=== PATIENT | male | born 1940 | race Caucasian/White ===

== ENCOUNTER 2016-11-03 06:02 | Day surgery (SDC) | payer BC ==
[~2016-11-03] VITALS: Ht 172.7 cm; Wt 80.7 kg
--- NOTE | ~2016-11-03 | EGD ---
EGD REPORT [facility] [address] [place] [id number] NAME: ENRIQUE CRISTOBAL : 42 STATUS : REG [facility]#: [id number] AGE: 76 ADM/REG DATE : 11/03/16 MR#: [id number] REPORT SERV DATE: 11/05/16 DICTATED BY: DATE: REPORT STATUS : Draft TRANSCRIBED BY: [facility] DATE: 11/05/16 [facility] Patient Name: Enrique Cristobal Date of : 1940 Attending MD: PRETTY NOONAN MD Procedure Date No Time: 11/03/2016 Procedure: Upper GI endoscopy Indications: Dysphagia Referring MD: RONNI HICKS Medicines: Monitored Anesthesia Care Complications: No immediate complications. Procedure: Pre-Anesthesia Assessment: - ASA Grade Assessment: II - A patient with mild systemic disease. After obtaining informed consent, the endoscope was passed under direct vision. Throughout the procedure, the patient's blood pressure, pulse, and oxygen saturations were monitored continuously. The GIF [id number] was introduced through the mouth, and advanced to the third part of duodenum. The upper GI endoscopy was accomplished without difficulty. The patient tolerated the procedure well. Findings: A 6 cm hiatus hernia was present. A benign-appearing, intrinsic mild stenosis measuring less than one cm (in length) was found 37 cm from the incisors and was traversed. A guidewire was placed and the scope was withdrawn. Dilation was performed with a Savary dilator with no resistance at 54 Fr and no resistance at 57 Fr. The examined esophagus was mildly tortuous. No other significant abnormalities were identified in a careful examination of the esophagus. There is no endoscopic evidence of Landin's esophagus, areas of erosion, ulcerations or varices in the entire esophagus. The entire examined stomach was normal. There is no endoscopic evidence of inflammation, mucosal abnormalities, ulceration or varices in the entire examined stomach. The examined duodenum was normal. There is no endoscopic evidence of inflammation, mucosal abnormalities or ulceration in the entire examined duodenum. The cardia and gastric fundus were normal on retroflexion. Impression: - Hiatus hernia. - Benign-appearing esophageal stricture. Dilated. EGD REPORT [address] [address] NAME: ENRIQUE CRISTOBAL : 42 STATUS : REG [facility] [place] PAT#: [id number] AGE: 76 ADM/REG DATE : 11/03/16 MR#: [id number] REPORT SERV DATE: 11/05/16 DICTATED BY: DATE: REPORT STATUS : Draft TRANSCRIBED BY: [employer] DATE: 11/05/16 - Tortuous esophagus. - Normal stomach. - Normal examined duodenum. Recommendation: - Patient has a contact number available for emergencies. The signs and symptoms of potential delayed complications were discussed with the patient. Return to normal activities tomorrow. Written discharge instructions were provided to the patient. - Return to previous diet. - Discharge patient to home. - Continue present medications. Procedure Code(s): --- Professional --- 39990, Esophagogastroduodenoscopy, flexible, transoral; with insertion of guide wire followed by passage of dilator(s) through esophagus over guide wire Diagnosis Code(s): --- Professional --- K44.9, Diaphragmatic hernia without obstruction or gangrene K22.2, Esophageal obstruction Q39.9, Congenital malformation of esophagus, unspecified R13.10, Dysphagia, unspecified CPT copyright 2013 [employer]. All rights reserved. The codes documented in this report are preliminary and upon floors buffer review may be revised to meet current compliance requirements. PRETTY NOONAN MD 11/03/2016 8:25 AM This report has been signed electronically. Number of Addenda: 0 Note Initiated On: 11/03/2016 8:01 AM Scope Withdrawal Time 0 hours 0 minutes 0 seconds [id number] [id number]
[~2016-11-03 06:02] MED LIST: ANTIBIOTIC; ASAB PO; COZ50 PO; COZAAR100 MG PO; FISH OIL1200 MG PO; FISH-EPA1000 MG PO; FLOMAX4 PO; HALF81 PO; HCTZ25B PO; IRON325 MG PO; MULTIVITAMI1 PO; NITROSTAT0.4 MG SL; NORV10 PO; PRILO PO; PRILOSEC40 MG PO; SINGULAIR1 PO; TOPXL25 PO; VITAMIN C100 MG PO; VITAMIN D31000 UNIT PO; VITAMIN D400 UNI1 PO; XYZAL5 MG PO; ZESTRIL5 MG PO; ZOLOFT25 MG PO
== END 2016-11-03 23:59 | disposition home or self-care (01) ==
LOC: DMU 06:02
PROVIDERS: Internal Medicine Gastroenterology
PROC: 0D758ZZ Dilation of Esophagus, Via Natural or Artificial Opening Endoscopic (ICD-10-PCS; principal; 2016-11-03 08:00)
DX: K22.2 Esophageal obstruction (principal); K44.9 Diaphragmatic hernia without obstruction or gangrene; I10 Essential (primary) hypertension; K21.9 Gastro-esophageal reflux disease without esophagitis; G47.33 Obstructive sleep apnea (adult) (pediatric); Z99.81 Dependence on supplemental oxygen; Z85.46 Personal history of malignant neoplasm of prostate; Z88.5 Allergy status to narcotic agent; Z88.8 Allergy status to other drugs, medicaments and biological substances; Z79.899 Other long term (current) drug therapy; Z87.891 Personal history of nicotine dependence; Z88.6 Allergy status to analgesic agent; Z98.890 Other specified postprocedural states